=== PATIENT | male | born 1990 | race Caucasian/White ===

== ENCOUNTER 2021-01-17 23:54 | Emergency (ER) | payer OTHER, BC, SELFPAY ==
--- NOTE | ~2021-01-17 | XR_ITS ---
EXAMINATION: XR wrist LT min 3V DATE: 01/18/2021 01:05 INDICATION: Left wrist injury and pain. TECHNIQUE: 4 views of left wrist were obtained. COMPARISON: None. FINDINGS: Bone alignment is normal. No fracture. Joint spaces are well maintained. IMPRESSION: 1. Normal left wrist. Reviewed, dictated and finalized at location A. IMPRESSION: 1. Normal left wrist.
[2021-01-17 23:56] VITALS: BP 161/78; PULSE 100; RESP 18; TEMP 36.3; O2SAT 100
[2021-01-18 00:43] VITALS: BP 135/92; PULSE 100; RESP 20; TEMP 36.8; O2SAT 98
--- NOTE | 2021-01-18 00:49 | PC.NURSE ---
Pt presents to ED with complaints of left wrist pain that onset at 1930 while at work. Pt states he was attempting to transport an approx 150lb box when his left wrist hyperextended. Pt able to perform full ROM without difficulty. Pt states pain is rated 2/10 and denies tx lighter captain. Pt noted to be alret and oriented x4. Breathing even and unlabored wit O2 saturation of 98% on room air. pt in no obvious distress with call button and personal items within reach. Advised to press call button for assistance.
--- NOTE | 2021-01-18 01:00 | ED.GENADULT ---
HPI - General Adult General Chief complaint: Extremity Injury, Upper Stated complaint: Left wrist injury Time Seen by Provider: 01/18/21 00:56 History of Present Illness HPI narrative: Patient 30-year-old gentleman who presents the emergency department chief complaint of the left wrist pain. Patient reports he is working in [employer] and was moving a box the box got caught on a nail and he pushed his wrist backwards. The patient states he has pain with movement states that is not swollen states that it is sore whenever he moves it in specific positions but denies deformity. The patient denies paresthesias Related Data Allergies Allergy/AdvReac Type Severity Reaction Status Date / Time No Known Allergies Allergy Verified 01/17/21 23:59 Review of Systems Review of Systems: Narrative: A 10 system review of systems was completed on the patient and is negative except for what is stated in the HPI. Nursing and ancillary documentation was reviewed. Exam Narrative: Exam Narrative: GENERAL: Well-appearing, well-nourished, and in no acute distress. HEAD: Normocephalic, atraumatic. EYES: PERRLA and EOMI. ENT: Nares clear, no rhinorrhea or epistaxis. Mucous membranes moist. NECK: Supple. CHEST: Clear to auscultation. No respiratory distress. HEART: Regular rate and rhythm. No murmur heard. Normal peripheral pulses. ABDOMEN: Soft, nontender, nondistended, normal active bowel sounds. EXTREMITIES: Normal range of motion. No edema. There is tenderness to palpation of the left wrist there is no swelling there is no deformity SKIN: Warm, dry, no rash. NEURO: No focal deficits. Alert and oriented x3. PSYCH: Normal mood and affect. Course Course Emergency Course: Plain film x-ray showed no evidence of fracture Vital Signs Vital signs: Vital Signs Temperature 36.3 C L 01/17/21 23:56 Pulse Rate 100 01/17/21 23:56 Respiratory Rate 18 01/17/21 23:56 Blood Pressure 161/78 H 01/17/21 23:56 Pulse Oximetry 100 01/17/21 23:56 Temperature 36.8 C 01/18/21 00:43 Pulse Rate 100 01/18/21 00:43 Respiratory Rate 20 01/18/21 00:43 Blood Pressure 135/92 H 01/18/21 00:43 Pulse Oximetry 98 01/18/21 00:43 Medical Decision Making Vital Signs Vital Signs: Vital Signs Temperature 36.3 C L 01/17/21 23:56 Pulse Rate 100 01/17/21 23:56 Respiratory Rate 18 01/17/21 23:56 Blood Pressure 161/78 H 01/17/21 23:56 Pulse Oximetry 100 01/17/21 23:56 Temperature 36.8 C 01/18/21 00:43 Pulse Rate 100 01/18/21 00:43 Respiratory Rate 20 01/18/21 00:43 Blood Pressure 135/92 H 01/18/21 00:43 Pulse Oximetry 98 01/18/21 00:43 Discharge Plan Discharge Clinical Impression: Sprain and strain of wrist Patient Disposition: Home, Self-Care Condition: Stable Instructions: Antibiotic Form, Wrist Sprain (ED) Additional Instructions: Please rest elevate and apply ice to the affected area you may take ibuprofen per package instructions for the discomfort. Follow-up/Referrals: PHYSICIAN,RAILCAR BRAKE OPERATOR [Primary Care Provider] - Tee Lane MD [Physician] - 1 Week Stand Alone Forms: Work/School Release IP Time of Disposition: :02
== END 2021-01-18 01:18 | disposition home or self-care (01) ==
PROVIDERS: Emergency Provider Emergency Medicine
DX: S63.502A Unspecified sprain of left wrist, initial encounter (principal); S66.912A Strain of unspecified muscle, fascia and tendon at wrist and hand level, left hand, initial encounter; X50.9XXA Other and unspecified overexertion or strenuous movements or postures, initial encounter
CPT/HCPCS: 73110; 99283